=== PATIENT | female | born 1975 | race Caucasian/White ===

== ENCOUNTER → 2021-09-23 | Outpatient (CLI) | payer BC ==
[~2021-09-23] VITALS: Ht 170.2 cm; Wt 117.5 kg
== END ==
LOC: EROP 11:04
DX: U07.1 COVID-19 (principal); E11.9 Type 2 diabetes mellitus without complications; I10 Essential (primary) hypertension; Z23 Encounter for immunization
CPT/HCPCS: M0247; Q0247

== ENCOUNTER → 2021-09-30 | Outpatient (CLI) | payer BC | LOC: CT 08:16 | DX: R18.8 Other ascites (principal); K76.0 Fatty (change of) liver, not elsewhere classified | CPT/HCPCS: Q9967 ==